=== PATIENT | male | born 1990 | race African-American/Black ===

== ENCOUNTER 2024-08-15 09:13 | Day surgery (SDC) | payer OTHER, SELFPAY ==
[2024-06-06 07:31] VITALS: BMI 36.0
[2024-07-25 09:14] VITALS: BMI 35.9
[2024-08-15 10:09] VITALS: BP 126/74; PULSE 54; RESP 16; TEMP 36.8; O2SAT 100; BMI 35.0
[2024-08-15] MEDS: LACTATED RINGERS 1,000 ML 150 ML IV CONT (10:30)
--- OUTSIDE RECORDS SUMMARY | 2024-08-15 10:38 | XMS_ITS | Continuity of Care Document ---
Author Organization [facility] Address [address] [place] [address] [place] [address] Phone Care Team Providers Care Senior Teller Name Role Phone Roland Tai MD Unavailable Unavailable Allergies, Adverse Reactions, Alerts Substance Reaction Status Criticality No Known Allergies Active No Inform ation Medications Medication Instructions Dosage Effective Dates (start - stop) Status Comments Topamax 50 mg tablet take 1 tablet by or al route every day 50 MG - Active Procedures Procedure Date OFFICE/OUTPATIENT VISIT, EST OFFICE/OUTPATIENT VISIT, EST PREV VISIT, NEW, AGE 18-39 OFFICE/OUTPATIENT VISIT, NEW Advance Directives Directive Yes / No Effective Date File Name No Information Encounters Encounter Description Practice Location Reason(s) For Visit Diagnoses Date Provider Providers Copied on Encounter OFFICE/OUTPA TIENT VISIT, EST [facility], [address] [place], [place], [id number], [place] tel:[phone] [facility] blood1 (chief complaint) heart1 (chief complaint) headache1 (chief complaint) Migraine w/o aura, not intractable, w/o status migrainosusArrhythm iaOccult blood in stool 4 Zaire Watkins. [address] [facility] [place], [id number] , [place]. tel:[phone] OFFICE/OUTPA TIENT VISIT, [facility], [address] [place], [place], [id number], [place] tel:[phone] [facility] HLP (chief complaint) cardiac (chief complaint) cardiac1 (chief complaint) headache1 (chief complaint) ED (chief complaint) ArrhythmiaMale erectile dysfunction, unspecifiedEncounte r for STD screeningMixed hyperlipidemiaMigra ine w/o aura, not intractable, w/o status migrainosus 4 Tai Roland. [address], [place], [place], [id number] , [place]. tel:[phone] PREV VISIT, NEW, AGE 18-39 [facility], [address] [place], [place], [id number], [place] tel:[phone] [facility] physical (chief complaint) Encounter for general adult medical exam w abnormal findingsMigraine w/o aura, not intractable, w/o status migrainosusMale erectile dysfunction, unspecifiedAbnormal weight gainArrhythmiaEncou nter for STD screening 4 Tai Roland. [address], [place], [place], [id number] , [place]. tel:[phone] Family History Family Member Type Diagnosis Age At Onset Father Problem Alive and well Mother Problem Alive and well Brother Problem Alive and well Payers Payer name Insurance type Covered green party ID Authoriza tion(s) No Information Social History Type Description Quantity Date Captured Comments Alcohol Use Details Caffeine Use Details Unknown Tobacco Use Status Current non-smoker Smoking Status Never smoker Sex Male Vital Signs Date / Time: Height Weight BMI Pulse Rate Blood Pressure Temperature Respiratory Rate Body Surface Area Head Circumference BMI percentile Pulse Ox Inhaled Ox 5:37 PM 71.00 in 263.00 lbs 36.6 8 kg/m eter (2) 95 /min 130/70 mm[Hg] 98.2 F 16 /min Chief Complaint And Reason For Visit From encounter dated 05/24/2024 17:29'. blood1 (chief complaint). Description: Pt notices acute onset of dark blood after BM and wiping since two days ago. He denies any pain ,he denies any constipation . he denies any nausea, vomiting GERD Pt states that he had one episode of dark blood and then followed by one episode of bright red blood. Pt denies any constipation or GERD. Pt denies any diarrhea heart1 (chief complaint). Description: Pt states that he was told by previous doctor that he has irregular heart beat. PT denies any palpitation or chest pain. 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 There was some question regarding enlarged heart aswell but he is not sure. he denies any recurrent syncope or any chest pain or palpitation. Pt has not done cardiac echo or holter monitor yet headache1 (chief complaint). Description: Pt has chronic throbbing headache all over head with photophobia and nausea and vomiting with injected eyes since he was a child Pt states adry the has headache every other day pt notices some food, lack of sleep, sounds usually trigger his headache pt had normal MRI of brain 10 years ago for above which was normal. Pt denies any head injury or waking up at night with headache Pt denies worsening headache, Pt states that usually tylenol OTC helps the headache. Pt has not even picked up topamax yet Pt denies any acute headache Plan Of Treatment Date Type Action Status Referral Ordered: COLONOSCOPY AND BIOPSY ordered Referral Ordered: DOPPLER ECHO EXAM, HEART ordered History Of Present Illness Encounter Date Complaint History Of Prese nt Illness blood1 Pt notices acute onset of dark blood after BM and wiping since two days ago. He denies any pain ,he denies any constipation . he denies any nausea, vomiting GERD Pt states that he had one episode of dark blood and then followed by one episode of bright red blood. Pt denies any constipation or GERD. Pt denies any diarrhea headache1 Pt has chronic t hrobbing headache all over head with photophobia and nausea and vomiting with injected eyes since he was a child Pt states adry the has headache every other day pt notices some food, lack of sleep, sounds usually trigger his headache pt had normal MRI of brain 10 years ago for above which was normal. Pt denies any head injury or waking up at night with headache Pt denies worsening headache, Pt states that usually tylenol OTC helps the headache. Pt has not even picked up topamax yet Pt denies any acute headache heart1 Pt states that h e was told by previous doctor that he has irregular heart beat. PT denies any palpitation or chest pain. 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 There was some question regarding enlarged heart as well but he is not sure. he denies any recurrent syncope or any chest pain or palpitation. Pt has not done cardiac echo or holter monitor yet ED Pt also has ED . Pt denies any testicular pain, atrophy or nodule Pt has good libido Pt states that he gets very nervous whenever he is intimate with his which causes performance anxiety and ED. His testosterone level is ok Pt states that he has not had any ED issue since his last visit . headache1 Pt has chronic t hrobbing headache all over head with photophobia and nausea and vomiting with injected eyes since he was a child Pt states adry the has headache every other day pt notices some food, lack of sleep, sounds usually trigger his headache pt had normal MRI of brain 10 years ago for above which was normal. Pt denies any head injury or waking up at night with headache Pt denies worsening headache, Pt states that usually tylenol OTC helps the headache. Pt has not even picked up topamax yet Pt denies any acute headache cardiac1 Pt states that h e was told by previous doctor that he has irregular heart beat. PT denies any palpitation or chest pain. 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 There was some question regarding enlarged heart as well but he is not sure. he denies any recurrent syncope or any chest pain or palpitation. Pt has not done cardiac echo or holter monitor yet cardiac HLP Pt has mild HLP Pt is not on any diet physical Pt needs annual physical Pt states that he was told by previous doctor that he has irregular heart beat. PT denies any palpitation or chest pain. 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 There was some question regarding enlarged heart as well but he is not sure. he denies any recurrent syncope or any chest pain or palpitation. Pt has chronic throbbing headache all over head with photophobia and nausea and vomiting with injected eyes since he was a child Pt states adry the has headache every other day pt notices some food, lack of sleep, sounds usually trigger his headache pt had normal MRI of brain 10 years ago for above which was normal. Pt denies any head injury or waking up at night with headache Pt denies worsening headache, Pt states that usually tylenol OTC helps the headache. Pt also has ED .Pt denies any testicular pain, atrophy or nodule Pt has good libido Pt states that he gets very nervous whenever he is intimate with his which causes performance anxiety and ED. He also gained more than 20 pounds during last several years . Instructions Date Instruction Additional Infor mation No Information Assessments Type Assessment Date assessment Migraine w/o aura, not intractab le, w/o status migrainosus assessment Arrhythmia assessment Occult blood in stool Mental Status Date Cognitive Assessment Orientation - Left Hand ed to time, place, person, situation.
--- OUTSIDE RECORDS SUMMARY | 2024-08-15 10:38 | XMS_ITS | Clinical Summary ---
Author Organization [facility] Address [facility] [place] [address] Care Team Providers Care Balance Weigher Name Role Phone None, Provider Primary Care Provider Unavaila ble Allergies No known active allergies Encounters Date Type Department Care Team Description 05/24/2024 7:31 PM HEAD SETTER - 05/24/2024 9:29 PM HEAD SETTER Emergency [facility] [place] [address] Maria M Villavicencio PA Blood In Stool Discharge Disposition: Home or Self Care (Routine Discharge) 05/24/2024 Travel from Last 3 Months Social History Tobacco Use Types Packs/Day Years Used Date Smoking Tobacco: Never Smokeless Tobacco: Never Tobacco Cessation:Counseling Given: Not Answered Alcohol Use Standard Drinks/Week Comments Yes 0 (1 standard drink = 0.6 oz pur e alcohol) socially Sex and Gender Information Value Date Recorded Sex Assigned at Not on file Legal Sex Male 7:16 PM HEAD SETTER Gender Identity Not on file Sexual Orientation Not on file Last Filed Vital Signs Vital Sign Reading Time Taken Comments Blood Pressure 144/89 05/24/2024 7:24 PM HEAD SETTER Pulse 85 05/24/2024 7:16 PM HEAD SETTER Temperature 36 C (96.8 F) 05/24/2024 7:16 PM HEAD SETTER Respiratory Rate 18 05/24/2024 7:16 PM HEAD SETTER Oxygen Saturation 100% 05/24/2024 7:16 PM HEAD SETTER Inhaled Oxygen Concentration - - Weight 116.6 kg (257 lb) 05/24/2024 7:16 PM HEAD SETTER Height 181.6 cm (5' 11.5 ) 05/24/2024 7:16 PM CS T Body Mass Index 35.34 05/24/2024 7:16 PM HEAD SETTER Plan of Treatment Health Maintenance Due Date Last Done Comments Annual Physical 1995 Hepatitis B Vaccines (3 of 3 - 3-dose series) 04/24/1998 02/27/1998, 03/08/1997 DTaP, Tdap and Td Vaccines (5 - Tdap) 2003 02/27/1998, 03/08/1997, 01/20/1996, Additional history exists Hepatitis C 2010 COVID-19 Vaccine ( season) 2024 Influenza Adult (#1) 2024 HPV Vaccines Aged Out No longer eligi ble based on patient's age to complete this topic Meningococcal B Vaccine Aged Out No l onger eligible based on patient's age to complete this topic Meningococcal Vaccine Aged Out No selina viv eligible based on patient's age to complete this topic Pneumococcal Vaccine: Pediatrics (0 to 5 Years) and At-Risk Patients (6 to 64 Years) Aged Out No longer eligible based on patient's age to complete this topic RSV Immunizations Under 20 Months Aged Out No longer eligible based on patient's age to complete this topic Procedures Procedure Name Priority Date/Time Associated Diagnosis Comments CT ABD+PEL W CON STAT 05/24/2024 8:24 PM HEAD SETTER COMPREHENSIVE METABOLIC PANEL STAT 05/24/2024 7:38 PM HEAD SETTER CBC W/DIFF AUTOMATED STAT 05/24/2024 7:38 PM HEAD SETTER from Last 3 Months Results * CT ABD+PEL W IV CON ONLY (05/24/2024 8:24 PM HEAD SETTER) Anatomical Region Laterality Modality Abdomen Computed Tomogra phy 05/24/2024 8:49 PM HEAD SETTER Impressions 05/24/2024 8:53 PM HEAD SETTER IMPRESSION: 1. No definite acute abnormalities identified in the abdomen or pelvis. 2. Please see above for description of chronic, incidental, and nonemergent findings. Referred By: Interpreted By: Vito Harvey MD, 05/24/2024 8:49 PM Narrative 05/24/2024 8:53 PM HEAD SETTER [place] [address] EXAMINATION: CT Abdomen and Pelvis with contrast CLINICAL HISTORY: Blood in stool. Colitis. COMPARISON: None TECHNIQUE: Computed tomography of the abdomen and pelvis was obtained after administration of intravenous contrast, 100 mL of Isovue-370, without immediate complication according to routine protocol. A dose lowering technique was used for this procedure, which may include, but is not limited to, dose reduction technique, automated exposure control, the use of iterative reconstruction, and ALARA (As Low As Reasonably Achievable) / Image Gently techniques. FINDINGS: Images of the lower chest reveal no acute findings. Tiny hypodensity in the liver, probably cyst. Gallbladder contracted. Spleen, pancreas, adrenal glands, and kidneys are unremarkable. Enhanced retroperitoneal vascular structures are unremarkable. No bulky mesenteric or retroperitoneal lymphadenopathy. Mild to moderate distention of the stomach. Small bowel loops are nondilated. Normal appendix. Scattered solid feces in the colon. No findings of bowel obstruction. No free fluid or free air in the abdomen. Fat-containing umbilical hernia. Sigmoid colon and rectum are unremarkable. Bladder underdistended. No pelvic ascites. No bulky pelvic or inguinal lymphadenopathy. Degenerative changes noted in the spine. Procedure Note Vito Harvey MD - 05/24/[address] [address] EXAMINATION: CT Abdomen and Pelvis with contrast CLINICAL HISTORY: Blood in stool. Colitis. COMPARISON: None TECHNIQUE: Computed tomography of the abdomen and pelvis was obtainedafter administration of intravenous contrast, 100 mL of Isovue-370,without immediate complication according to routine protocol. A dose lowering technique was used for this procedure, which may include,but is not limited to, dose reduction technique, automated exposurecontrol, the use of iterative reconstruction, and ALARA (As Low AsReasonably Achievable) / Image Gently techniques. FINDINGS: Images of the lower chest reveal no acute findings. Tiny hypodensity in the liver, probably cyst. Gallbladder contracted.Spleen, pancreas, adrenal glands, and kidneys are unremarkable. Enhancedretroperitoneal vascular structures are unremarkable. No bulky mesentericor retroperitoneal lymphadenopathy. Mild to moderate distention of the stomach. Small bowel loops arenondilated. Normal appendix. Scattered solid feces in the colon. Nofindings of bowel obstruction. No free fluid or free air in the abdomen.Fat-containing umbilical hernia. Sigmoid colon and rectum are unremarkable. Bladder underdistended. Nopelvic ascites. No bulky pelvic or inguinal lymphadenopathy. Degenerative changes noted in the spine. IMPRESSION: 1. No definite acute abnormalities identified in the abdomen or pelvis. 2. Please see above for description of chronic, incidental, andnonemergent findings. Referred By: Interpreted By: Vito Harvey MD, 05/24/2024 8:49 PM us [address] [facility] Final Resul t * COMPREHENSIVE METABOLIC PANEL (05/24/2024 7:38 PM HEAD SETTER) [facility] GLUCOSE 89 70 - 99 MG/DL 05/24/2024 8:41 PM [facility] BUN 13 7 - 18 MG/DL 05/24/2024 8:41 PM [facility] CREATININE S/P/B 1.09 0.7 - 1.3 MG/DL 05/24/2024 8:41 PM [facility] SODIUM S/P/B 141 136 - 145 MMOL/L 05/24/2024 8:41 PM [facility] POTASSIUM S/P/B 3.7 3.5 - 5.1 MMOL/L 05/24/2024 8:41 PM [facility] CHLORIDE S/P/B 108 97 - 115 MMOL/L 05/24/2024 8:41 PM [facility] CO2 27.1 21 - 32 MMOL/L 05/24/2024 8:41 PM [facility] CALCIUM S/P/B 9.7 8.5 - 10.1 MG/DL 05/24/2024 8:41 PM [facility] BILIRUBIN TOTAL S/P/B 0.5 0.2 - 1.2 MG/DL 05/24/2024 8:41 PM [facility] Comment: THIS ASSAY IS NOT RECOMMENDED FOR PATIENTS UNDERGOING TREATMENT WITH ELTROMBOPAG DUE TO THE POTENTIAL FOR FALSELY ELEVATED RESULTS. TOTAL PROTEIN S/P/B 8.0 6.4 - 8.2 G/DL 05/24/2024 8:41 PM [facility] ALBUMIN S/P/B 4.2 3.4 - 5.0 G/DL 05/24/2024 8:41 PM [facility] AST 28 15 - 37 U/L 05/24/2024 8:41 PM [facility] ALT 49 16 - 60 U/L 05/24/2024 8:41 PM [facility] ALKALINE PHOSPHATASE S/P/B 97 50 - 136 U/L 05/24/2024 8:41 PM [facility] ANION GAP 5.9 2 - 10 MMOL/L 05/24/2024 8:41 PM [facility] BUN CREATININE RATIO 11.9 6 - 26 05/24/2024 8:41 PM [facility] A/G RATIO 1.1 1.0 - 2.0 RATIO 05/24/2024 8:41 PM [facility] GFR ESTIMATE >90 >90 ML/MIN/1.7 3 M2 05/24/2024 8:41 PM [facility] Comment: NOTE: eGFR is not calculated for patients <18 years of age or gender unknown. This is an estimated GFR calculation using the new CKD EPI creatinine equation without race and so does not require a correction factor for race. This estimated GFR should not be used for calculating drug doses. 05/24/2024 7:38 PM HEAD SETTER [facility] Final Resul t [facility] [address] [place] [address], [place] [phone] * (ABNORMAL) CBC W/DIFF AUTOMATED (05/24/2024 7:38 PM HEAD SETTER) WBC 12.26(H) 4.5 - 11.0 x10'3/uL 05/24/2024 7:49 PM HEAD SETTER [facility] RBC 5.03 4.70 - 6.10 x10'6/uL 05/24/2024 7:49 PM HEAD SETTER [facility] HGB 13.9(L) 14.0 - 18.0 G/DL 05/24/2024 7:49 PM HEAD SETTER [facility] HCT 42.8(L) 43.0 - 54.0 % 05/24/2024 7:49 PM HEAD SETTER [facility] MCV 85.1 80.0 - 94.0 FL 05/24/2024 7:49 PM HEAD SETTER [facility] MCH 27.6 27.0 - 31.0 PG 05/24/2024 7:49 PM HEAD SETTER [facility] MCHC 32.5 32.0 - 36.0 G/DL 05/24/2024 7:49 PM HEAD SETTER [facility] RDW 14.5 11.5 - 14.5 % 05/24/2024 7:49 PM HEAD SETTER [facility] PLT 236 130 - 400 x10'3/uL 05/24/2024 7:49 PM HEAD SETTER [facility] MPV 10.5 9.3 - 12.2 FL 05/24/2024 7:49 PM HEAD SETTER [facility] DIFFERENTIAL TYPE AUTOMATED DIFFERENTIAL 05/24/2024 7:49 PM HEAD SETTER [facility] NEUTROPHILS % 51.4 % 05/24/2024 7:49 PM [facility] LYMPHOCYTES % 37.8 % 05/24/2024 7:49 PM [facility] MONOCYTES % 8.1 % 05/24/2024 7:49 PM [facility] EOSINOPHILS 1.5 % 05/24/2024 7:49 PM [facility] BASOPHILS 0.8 % 05/24/2024 7:49 PM [facility] IMMATURE GRANS % 0.4 % 05/24/20 7:49 PM [facility] ABS. NEUTROPHILS 6.31 1.80 - 7.70 x10'3/uL 05/24/2024 7:49 PM [facility] ABS. LYMPHOCYTES 4.63 1.00 - 4.80 x10'3/uL 05/24/2024 7:49 PM [facility] ABS. MONOCYTES 0.99(H) 0.30 - 0.82 x10'3/uL 05/24/2024 7:49 PM [facility] ABS. EOSINOPHILS 0.18 0.04 - 0.54 x10'3/uL 05/24/2024 7:49 PM [facility] ABS. BASOPHILS 0.10(H) 0.01 - 0.08 x10'3/uL 05/24/2024 7:49 PM [facility] ABS. IMMATURE GRANULOCYTES 0.05 0.00 - 0.49 x10'3/uL 05/24/2024 7:49 PM [facility] 05/24/2024 7:38 PM HEAD SETTER us [facility] Final Resul t [facility] [address] [place] [address], [place] [phone] from Last 3 Months Insurance [facility] Care Teams Balance Weigher Relationship Specialty Start Date End Date None, Provider, MD PCP - General UNKNOWN PHYSICIAN SPECIALTY 05/24/24
--- NOTE | 2024-08-15 10:57 | P.HP_ITS ---
H&P: HPI History of Present Illness Date/Time: 08/15/24 10:57 Chief Complaint: Epigastric pain/rectal bleeding Narrative: approximately 3 months ago, the patient experienced several episodes of rectal bleeding, bright right type. concomitantly, he has experienced sharp, moderate epigastric pain self limited. He is referred for EGD and colonoscopy. Review of Systems Review of Systems: All systems reviewed & are unremarkable except as noted in HPI and below [facility] Social History Social History Smoking status: Never smoker Alcohol use details: occasional Substance use type: does not use Living arrangements: with family Spiritual care concerns: No Meds Home Medications and Allergies Home Medications ?Medication ?Instructions ?Recorded ?Confirmed ?Type acetaminophen 325 mg capsule 325 mg PO Q4-6H PRN pain 07/25/24 08/15/24 History naproxen sodium 220 mg tablet 220 mg PO Q6-8H PRN pain 07/25/24 08/15/24 History (Aleve) Allergies Allergy/AdvReac Type Severity Reaction Status Date / Time No Known Allergies Allergy Verified 07/25/24 09:20 Vital Signs Vital Signs - 24 hr 08/15/24 10:09 Temperature 98.2 F Pulse Rate 54 L Respiratory Rate 16 Blood Pressure 126/74 Pulse Oximetry 100 Oxygen Delivery Room Air Exam Const: General: cooperative and healthy appearing Resp: Effort & Inspection: normal respiratory effort and able to speak in complete sentences Auscultation: clear to auscultation bilaterally Cardio: Rate: regular rate Rhythm: regular rhythm GI: Inspection: normal to inspection GI Palp: No No hepatosplenomegaly present Auscultation: normal bowel sounds Rectal Exam: deferred Skin: General skin exam: normal color Psych: Appearance: grossly normal Mental Status: mental status grossly normal Assessment and Plan Assessment and plan (1) Abdominal pain: Code(s): R10.9 - Unspecified abdominal pain Status: Acute Assessment and Plan: The patient is deemed a good candidate for the procedure. Consent signed. Will proceed. (2) Bright red rectal bleeding: Code(s): K62.5 - Hemorrhage of anus and rectum Status: Acute
--- NOTE | 2024-08-15 11:03 | P.PNAN_ITS ---
Anes - Initial Pre Proc Eval Procedure: Operation Date: 08/15/24 11:45 Proposed Procedures p Esophagogastroduodenoscopy - Jake Ruelas MD s Diagnostic Colonoscopy - Jake Ruelas MD Date/Time: 08/15/24 11:03 Surgeon: Jake Ruelas MD Pre Op Diagnosis: R19.5 Occult Blood in Stool Patient Data Age: 34 Gender: M Height: 1.8 m Weight: 114.05 kg Last Vital Signs Temp 36.8 C 08/15/24 10:09 Pulse 54 L 08/15/24 10:09 Resp 16 08/15/24 10:09 BP 126/74 08/15/24 10:09 Pulse Ox 100 08/15/24 10:09 O2 Del Method Room Air 08/15/24 10:09 Allergies Allergy/AdvReac Type Severity Reaction Status Date / Time No Known Allergies Allergy Verified 07/25/24 09:20 Home Medications ?Medication ?Instructions ?Recorded ?Confirmed ?Type acetaminophen 325 mg capsule 325 mg PO Q4-6H PRN pain 07/25/24 08/15/24 History naproxen sodium 220 mg tablet 220 mg PO Q6-8H PRN pain 07/25/24 08/15/24 History (Aleve) Patient hx anesthesia problems: none Family hx anesthesia problems: none Results Review: All pre-operative results and documents have been reviewed as part of the pre- operative evaluation. [facility] Past Medical History Medical History (Updated 08/15/24 @ 11:04 by Noel Smith MD) Obesity Social History Social History Smoking status: Never smoker Alcohol use details: occasional Substance use type: does not use Living arrangements: with family Spiritual care concerns: No Anes - Eval Final PreProcedure Day of Procedure 08/15/24 11:03 Patient weight: obese Heart: regular rate and rhythm Lungs: clear to auscultation Airway: Mallampati scale class II Neurological: alert and oriented Last oral intake: >/= 8 hours ASA classification: II Emergent: no Anesthetic plan: proceed Anesthesia type and monitoring: general GIVS and standard monitoring Results Review: All pre-operative results and documents have been reviewed as part of the pre- operative evaluation. Informed Consent: The patient's anesthetic plan and its attendant risks and benefits were discussed with the patient/family/POA. Questions were solicited and answers provided to the satisfaction of the patient/family/POA.
[2024-08-15 11:37] VITALS: BP 97/78; PULSE 78; RESP 14; O2SAT 99
[2024-08-15 11:47] VITALS: BP 100/72; PULSE 69; RESP 15; O2SAT 100
[2024-08-15 11:57] VITALS: BP 119/79; PULSE 72; RESP 14; O2SAT 100
--- NOTE | 2024-08-15 12:00 | WPDANESPN ---
Anes - Prog Note Post-Op Date/Time: 08/15/24 12:00 Cardiovascular status: normal Respiratory status: normal Airway patency: baseline Mental status: baseline Post-Op hydration status: normal Vital Signs: Last Vital Signs Temp 36.8 C 08/15/24 10:09 Pulse 69 08/15/24 11:47 Resp 15 08/15/24 11:47 BP 100/72 08/15/24 11:47 Pulse Ox 100 08/15/24 11:47 O2 Del Method Room Air 08/15/24 11:47 Pain Score (VAS): 0/10 I/O: Intake & Output 08/14/24 08/15/24 08/15/24 23:59 07:59 15:59 Intake Total 400 Balance 400 Patient Feedback: Patient satisfied with anesthetic care.
[2024-08-15 12:07] VITALS: PULSE 59; RESP 15; O2SAT 99
[2024-08-15 12:17] VITALS: BP 144/84; PULSE 68; RESP 15; O2SAT 99
== END 2024-08-15 12:39 | disposition home or self-care (01) ==
PROVIDERS: PCP Emergency Medicine; Visit Provider Internal Medicine Gastroenterology
PROC: 0DJ08ZZ Inspection of Upper Intestinal Tract, Via Natural or Artificial Opening Endoscopic (ICD-10-PCS; CPT 45378; principal; 2024-08-15 11:45)
PROC: 0DJD8ZZ Inspection of Lower Intestinal Tract, Via Natural or Artificial Opening Endoscopic (ICD-10-PCS; CPT 45378; 2024-08-15 11:45)
DX: K62.5 Hemorrhage of anus and rectum (principal); K64.8 Other hemorrhoids; R10.13 Epigastric pain
CPT/HCPCS: 45378; 43239

== ENCOUNTER 2024-08-15 11:49 | Outpatient (NON) | payer OTHER, SELFPAY ==
--- OUTSIDE RECORDS SUMMARY | 2024-08-16 13:02 | XMS_ITS | Clinical Summary ---
Author Organization [facility] Address [facility] [place] [address] Care Team Providers Care Plumbing Designer Name Role Phone None, Provider Primary Care Provider Unavaila ble Allergies No known active allergies Encounters Date Type Department Care Team Description 05/24/2024 7:31 PM GAS CONTROLLER - 05/24/2024 9:29 PM GAS CONTROLLER Emergency [facility] [place] [address] Maria M Villavicencio PA Blood In Stool [...] on file Legal Sex Male 7:16 PM GAS CONTROLLER Gender Identity Not on file Sexual Orientation Not on file Last Filed Vital Signs Vital Sign Reading Time Taken Comments Blood Pressure 144/89 05/24/2024 7:24 PM GAS CONTROLLER Pulse 85 05/24/2024 7:16 PM GAS CONTROLLER Temperature 36 C (96.8 F) 05/24/2024 7:16 PM GAS CONTROLLER Respiratory Rate 18 05/24/2024 7:16 PM GAS CONTROLLER Oxygen Saturation 100% 05/24/2024 7:16 PM GAS CONTROLLER Inhaled Oxygen Concentration - - Weight 116.6 kg (257 lb) 05/24/2024 7:16 PM GAS CONTROLLER Height 181.6 cm (5' 11.5 ) 05/24/2024 7:16 PM CS T Body Mass Index 35.34 05/24/2024 7:16 PM GAS CONTROLLER Plan of Treatment Health Maintenance Due Date [...] ABD+PEL W CON STAT 05/24/2024 8:24 PM GAS CONTROLLER COMPREHENSIVE METABOLIC PANEL STAT 05/24/2024 7:38 PM GAS CONTROLLER CBC W/DIFF AUTOMATED STAT 05/24/2024 7:38 PM GAS CONTROLLER from Last 3 Months Results * CT ABD+PEL W IV CON ONLY (05/24/2024 8:24 PM GAS CONTROLLER) Anatomical Region Laterality Modality Abdomen Computed Tomogra phy 05/24/2024 8:49 PM GAS CONTROLLER Impressions 05/24/2024 8:53 PM GAS CONTROLLER IMPRESSION: 1. No definite acute abnormalities identified in the abdomen or pelvis. 2. Please see above for description of chronic, incidental, and nonemergent findings. Referred By: Interpreted By: Vito Harvey MD, 05/24/2024 8:49 PM Narrative 05/24/2024 8:53 PM GAS CONTROLLER [place] [id number] EXAMINATION: CT Abdomen and Pelvis with contrast [...] Procedure Note Vito Harvey MD - 05/24/[address] [address] EXAMINATION: CT Abdomen and Pelvis with contrast [...] * COMPREHENSIVE METABOLIC PANEL (05/24/2024 7:38 PM GAS CONTROLLER) [facility] GLUCOSE 89 70 - 99 MG/DL 05/24/2024 8:41 PM [facility] BUN 13 7 - 18 MG/DL 05/24/2024 8:41 PM [facility] CREATININE S/P/B 1.09 0.7 - 1.3 MG/DL 05/24/2024 8:41 PM [facility] SODIUM S/P/B 141 136 - 145 MMOL/L 05/24/2024 8:41 PM [facility] POTASSIUM S/P/B 3.7 3.5 - 5.1 MMOL/L 05/24/2024 8:41 PM [facility] CHLORIDE S/P/B 108 97 - 115 MMOL/L 05/24/2024 8:41 PM [facility] CO2 27.1 21 - 32 MMOL/L 05/24/2024 8:41 PM [facility] CALCIUM S/P/B 9.7 8.5 - 10.1 MG/DL 05/24/2024 8:41 PM [facility] BILIRUBIN TOTAL S/P/B 0.5 0.2 - 1.2 MG/DL 05/24/2024 8:41 PM [facility] Comment: THIS ASSAY IS NOT RECOMMENDED FOR PATIENTS UNDERGOING TREATMENT WITH ELTROMBOPAG DUE TO THE POTENTIAL FOR FALSELY ELEVATED RESULTS. TOTAL PROTEIN S/P/B 8.0 6.4 - 8.2 G/DL 05/24/2024 8:41 PM [facility] ALBUMIN S/P/B 4.2 3.4 - 5.0 G/DL 05/24/2024 8:41 PM [facility] AST 28 15 - 37 U/L 05/24/2024 8:41 PM [facility] ALT 49 16 - 60 U/L 05/24/2024 8:41 PM [facility] ALKALINE PHOSPHATASE S/P/B 97 50 - 136 U/L 05/24/2024 8:41 PM [facility] ANION GAP 5.9 2 - 10 MMOL/L 05/24/2024 8:41 PM [facility] BUN CREATININE RATIO 11.9 6 - 26 05/24/2024 8:41 PM [facility] A/G RATIO 1.1 1.0 - 2.0 RATIO 05/24/2024 8:41 PM [facility] GFR ESTIMATE >90 >90 ML/MIN/1.7 3 M2 05/24/2024 8:41 PM [facility] Comment: NOTE: eGFR is not calculated for patients <18 years of age or gender unknown. This is an estimated GFR calculation using the new CKD EPI creatinine equation without race and so does not require a correction factor for race. This estimated GFR should not be used for calculating drug doses. 05/24/2024 7:38 PM GAS CONTROLLER [facility] Final Resul t [facility] [address] [place] [address], [place] [phone] * (ABNORMAL) CBC W/DIFF AUTOMATED (05/24/2024 7:38 PM GAS CONTROLLER) WBC 12.26(H) 4.5 - 11.0 x10'3/uL 05/24/2024 7:49 PM GAS CONTROLLER [facility] RBC 5.03 4.70 - 6.10 x10'6/uL 05/24/2024 7:49 PM GAS CONTROLLER [facility] HGB 13.9(L) 14.0 - 18.0 G/DL 05/24/2024 7:49 PM GAS CONTROLLER [facility] HCT 42.8(L) 43.0 - 54.0 % 05/24/2024 7:49 PM GAS CONTROLLER [facility] MCV 85.1 80.0 - 94.0 FL 05/24/2024 7:49 PM GAS CONTROLLER [facility] MCH 27.6 27.0 - 31.0 PG 05/24/2024 7:49 PM GAS CONTROLLER [facility] MCHC 32.5 32.0 - 36.0 G/DL 05/24/2024 7:49 PM GAS CONTROLLER [facility] RDW 14.5 11.5 - 14.5 % 05/24/2024 7:49 PM GAS CONTROLLER [facility] PLT 236 130 - 400 x10'3/uL 05/24/2024 7:49 PM GAS CONTROLLER [facility] MPV 10.5 9.3 - 12.2 FL 05/24/2024 7:49 PM GAS CONTROLLER [facility] DIFFERENTIAL TYPE AUTOMATED DIFFERENTIAL 05/24/2024 7:49 PM GAS CONTROLLER [facility] NEUTROPHILS % 51.4 % 05/24/2024 7:49 PM [facility] LYMPHOCYTES % 37.8 % 05/24/2024 7:49 PM [facility] MONOCYTES % 8.1 % 05/24/2024 7:49 PM [facility] EOSINOPHILS 1.5 % 05/24/2024 7:49 PM [facility] BASOPHILS 0.8 % 05/24/2024 7:49 PM [facility] IMMATURE GRANS % 0.4 % 05/24/20 7:49 PM [facility] ABS. NEUTROPHILS 6.31 1.80 - 7.70 x10'3/uL 05/24/2024 7:49 PM [facility] ABS. LYMPHOCYTES 4.63 1.00 - 4.80 x10'3/uL 05/24/2024 7:49 PM [facility] ABS. MONOCYTES 0.99(H) 0.30 - 0.82 x10'3/uL 05/24/2024 7:49 PM [facility] ABS. EOSINOPHILS 0.18 0.04 - 0.54 x10'3/uL 05/24/2024 7:49 PM [facility] ABS. BASOPHILS 0.10(H) 0.01 - 0.08 x10'3/uL 05/24/2024 7:49 PM [facility] ABS. IMMATURE GRANULOCYTES 0.05 0.00 - 0.49 x10'3/uL 05/24/2024 7:49 PM [facility] 05/24/2024 7:38 PM GAS CONTROLLER us [facility] Final Resul t [facility] [address] [place] [address], [place] [phone] from Last 3 Months Insurance [facility] Care Teams Plumbing Designer Relationship Specialty Start Date End Date None, Provider, MD PCP - General UNKNOWN PHYSICIAN SPECIALTY 05/24/24
--- OUTSIDE RECORDS SUMMARY | 2024-08-16 13:02 | XMS_ITS | Continuity of Care Document ---
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 [address] [facility] [place], [id number] , [place]. tel:[phone] OFFICE/OUTPA TIENT VISIT, [facility] [place], [address] [place] [place], [id number], [place] tel:[phone] [facility] HLP (chief complaint) cardiac (chief complaint) cardiac1 (chief complaint) headache1 (chief complaint) ED (chief complaint) ArrhythmiaMale erectile dysfunction, unspecifiedEncounte r for STD screeningMixed hyperlipidemiaMigra ine w/o aura, not intractable, w/o status migrainosus 4 Tai Roland. [address], [place], [place], [id number] , [place]. tel:[phone] PREV VISIT, NEW, AGE 18-39 [facility], [address] [place], [place], [id number], [place] tel:[phone] [facility] physical (chief complaint) Encounter for general adult medical exam w abnormal findingsMigraine w/o aura, not intractable, w/o status migrainosusMale erectile dysfunction, unspecifiedAbnormal weight gainArrhythmiaEncou nter for STD screening 4 Tai Roland. [address], [place], [place], [id number] , [place]. tel:[phone] Family History Family Member Type Diagnosis Age At Onset Father Problem Alive and well Mother Problem Alive and well Brother Problem Alive and well Payers Payer name Insurance type Covered libertarian ID Authoriza tion(s) No Information Social History [...] Mental Status Date Cognitive Assessment Orientation - [place] ed to time, place, person, situation.
== END 2024-08-15 11:50 | disposition home or self-care (01) ==
LOC: ANHLAB 08-16 11:50
PROVIDERS: PCP Emergency Medicine; Visit Provider Internal Medicine Gastroenterology
DX: K62.5 Hemorrhage of anus and rectum (principal); R10.9 Unspecified abdominal pain
CPT/HCPCS: 88305